=== PATIENT | female | born 1985 | race American Indian/Alaskan Native ===

== ENCOUNTER 2017-11-27 23:08 | Inpatient (IN) | payer MEDICAID, SELFPAY ==
[2017-11-27 23:35] VITALS: BMI 22.6
[2017-11-27] MEDS ORDERED: Lactated Ringer's 1,000 ML IV ONE (23:37)
--- NOTE | 2017-11-27 23:41 | OBADHP ---
Datetime: 11/27/2017 23:34 Admit Comment, IP Provider: 32 yo IUP at 38+w c/o CTX since 4pm...CTX q 2-5m. No SROM. NO VB . +FM PNC: [facility] - chart rev'd GBS neg PMH: denies PSH: denies NKA POBGYNH: No STD; x 2 (7.5lb each) [facility] denies smoking ETOH drugs - she came with FOB f this child (she is safe and no problems) A: IUp at 38w active phase of labor PLAN: admit to L_D IVF pain management, labor, delivery and discussed with pt Her questions answered Extremities - PN: Normal Abdomen - PN: Normal Back - PN: Normal Lungs - PN: Normal Heart - PN: Normal Thyroid - PN: Normal Neurologic - PN: Normal HEENT - PN: Normal General - PN: Normal Presentation-Admit: Vertex FHR - Baseline A Provider: 135 Membranes, Provider: Intact Pool Provider: Negative IP Hx Assessment: The History has been Reviewed and is Current Vital Signs Provider: Reviewed; Within Normal Limits IP Chief Complaint: Uterine contractions NICHD Variability Prov Fetus A: Moderate 6-25bpm NICHD Accel Fetus A IP Provider: [id number] FHR Category Provider Fetus A: Category I NICHD Decel Fetus A IP Provider: None Dilatation, Provider: 5-6 Effacement, Provider: 90 Station, Provider: -1 DTRs - PN: Normal EGA AdmitDate IP: 38.4 IP Adm Impression: Term, intrauterine ; Active labor; Intact Membranes IP Admit Plan: Admit to unit; Initiate labor protocol
[2017-11-27] MEDS ORDERED: Lactated Ringer's 1,000 ML IV SCH (23:45)
[2017-11-28 00:46] LABS: BASO % 0.4 % (0.0-2.0); EOS % 0.3 % (0.0-4.0); HEMOGLOBIN 11.6 g/dL (12.0-16.0); LYMPH # 1.8 K/uL (1.0-4.3); LYMPH % 20.6 % (20.0-40.0); MEAN CELL VOLUME 86.5 fl (81.0-99.0); MEAN CORPUSCULAR HEMOGLOBIN 28.1 pg (27.0-31.0); MEAN CORPUSCULAR HGB CONC 32.5 g/dL (33.0-37.0); MONO # 0.9 K/uL (0.0-0.8); MONO % 9.9 % (0.0-10.0); NEUT % 68.8 % (50.0-75.0); RBC 4.12 Mil/uL (3.80-5.20); RED CELL DISTRIBUTION WIDTH 15.1 % (11.5-14.5); WHITE BLOOD COUNT 8.7 K/uL (4.8-10.8)
[2017-11-28] MEDS ORDERED: Oxytocin 30 UNIT 30 UNITS/500 ML BAG IV ONE ×2 (04:36→05:55)
[2017-11-28] MEDS ORDERED: Bupivacaine HCl 0.5% PF (30 ml) Inj ONE (05:08)
[2017-11-28] MEDS ORDERED: OXYTOCIN/0.9 % NS 20 UNIT/1,000 ML BAG IV ONE (05:55)
[2017-11-28] MEDS ORDERED: Oxycodone/Acetaminophen 5/325 mg Tab PO PRN (05:55)
--- NOTE | 2017-11-28 07:22 | OBDS ---
DELIVERY PERSONNEL Delivery Doctor: Avril Zednejas DO Clam Treader: Stacia Russell RN MATERNAL INFORMATION Delivery Anesthesia: Local Medications in Delivery: PITOCIN 30 UNITS IN NS Estimated Blood Loss (ml): 200 Placenta Cultured: No Maternal Complications: None Provider Comments: Over intact perineum, of live infant. Loose nuchal cord noted. was c rying spontaneously and bulb sustioned. Placenta delivered intact spontaneously. She remained stable EBL 200cc LABOR SUMMARY EDC: 12/07/2017 00:00 No. Babies in Womb: 1 Attempted: No Labor Anesthesia: None LABOR INFORMATION Reason for Induction: Not Applicable Onset of Labor: 11/27/2017 16:00 Complete Dilatation: 11/28/2017 05:00 Oxytocin: N/A Group B Beta Strep: Negative Antibiotics # of Doses: 0 Steroids Given: None Reason Steroids Not Administered: Not Applicable MEMBRANES Membranes Rupture Method: Spontaneous Rupture of Membranes: 11/28/2017 04:30 Length of Rupture (hrs): 0.63 Amniotic Fluid Color: Clear Amniotic Fluid Amount: Large Amniotic Fluid Odor: Normal STAGES OF LABOR Stage 1 hrs: 13 Stage 1 min: 0 Stage 2 hrs: 0 Stage 2 min: 8 Stage 3 hrs: 0 Stage 3 min: 10 Total Time in Labor hrs: 13 Total Time in Labor min: 18 VAGINAL DELIVERY Episiotomy: None Laceration Extension: Second Degree Laceration Type: Perineal Laceration Repair: Yes Laceration Repair Note: Local anesthesia infiltrated. 2.) Vircyl Rapide was used to repair perineal laceratoin Initial Vag Sponge Count: 5 Final Vag Sponge Count: 10 Initial Vag Sharps Count: 1 Final Vag Sharps Count: 1 Sponge Count Correct: Yes; Vaginal Sweep Performed Sharps Count Correct: Yes BABY A INFORMATION Infant Delivery Date/Time: 11/28/2017 05:08 Method of Delivery: Vaginal Born in Route : No : N/A Forceps: N/A Vacuum Extraction: N/A Shoulder Dystocia : No SHOULDER DYSTOCIA BABY A Infant Delivery Date/Time: 11/28/2017 05:08 PRESENTATION/POSITION BABY A Presentation: Cephalic Cephalic Presentation: Vertex Breech Presentation: N/A PLACENTA INFORMATION BABY A Placenta Delivery Time : 11/28/2017 05:18 Placenta Method of Delivery: Spontaneous Placenta Status: Delivered SCORES BABY A Heart Rate 1 min: >100 bpm Resp Effort 1 min: Good Cry Reflex Irritability 1 min: Cough or Sneeze or Pulls Away Muscle Tone 1 min: Active Motion Color 1 min: Body [place], Extremities Blue Resuscitation Effort 1 min: Tactile Stimulation SCORE 1 MIN: 9 Heart Rate 5 min: >100 bpm Resp Effort 5 min: Good Cry Reflex Irritability 5 min: Cough or Sneeze or Pulls Away Muscle Tone 5 min: Active Motion Color 5 min: Body [place], Extremities Blue Resuscitation Effort 5 min: N/A SCORE 5 MIN: 9 INFANT INFORMATION BABY A Gestational Age at Delivery: 38.5 Gestational Status: Term Infant Outcome : Liveborn Condition : Stable Sex: Male IDENTIFICATION/MEDS BABY A ID Band Number: [id number] ID Band Location: Left Leg; Left Arm WEIGHT/LENGTH BABY A Infant Birthweight (gms): 3925 Weight (lb): 8 Infant Weight (oz): 10 CORD INFORMATION BABY A No. Cord Vessels: 3 Nuchal Cord : Around Neck x1, Loose Infant Suction: None
[2017-11-28] MEDS: Benzocaine/Menthol SPRAY TOP PRN (08:15)
[2017-11-29 07:15] LABS: BASO # 0.1 K/uL (0.0-0.2); BASO % 0.9 % (0.0-2.0); EOS # 0.1 K/uL (0.0-0.7); EOS % 0.8 % (0.0-4.0); HEMOGLOBIN 12.6 g/dL (12.0-16.0); LYMPH # 2.7 K/uL (1.0-4.3); LYMPH % 19.6 % (20.0-40.0); MEAN CELL VOLUME 87.6 fl (81.0-99.0); MEAN CORPUSCULAR HEMOGLOBIN 28.3 pg (27.0-31.0); MEAN CORPUSCULAR HGB CONC 32.3 g/dL (33.0-37.0); MEAN PLATELET VOLUME 9.7 fl (7.2-11.7); MONO # 0.9 K/uL (0.0-0.8); MONO % 6.9 % (0.0-10.0); NEUT # 9.7 K/uL (1.8-7.0); NEUT % 71.8 % (50.0-75.0); NRBC % 0.1 % (0.0-0.0); RBC 4.44 Mil/uL (3.80-5.20); RED CELL DISTRIBUTION WIDTH 15.6 % (11.5-14.5); WHITE BLOOD COUNT 13.6 K/uL (4.8-10.8)
[2017-11-29] MEDS: Multivitamin With Minerals Tab PO SCH (08:33)
--- NOTE | 2017-11-29 12:12 | OBPPN ---
Datetime: 11/29/2017 06:53 PP Pain Prov: Within normal limits PP Nausea Prov: Denies PP Flatus Prov: Yes PP BM Prov: No PP Breasts Prov: Not Done PP Heart Prov: Normal PP Lungs Prov: Normal PP Abdomen/Uterus Prov: Normal PP Lochia Prov: Normal PP Vulva/Perineum Prov: Not Done PP CVA Tenderness Prov: Normal PP Extremities Prov: Normal PP C/S Incision Prov: Not Applicable PP Progress Prov: Normal PP Impression Prov: Normal progression PP Plan Prov: Continue present management PP Progress Note Prov: S: Patient seen and evaluated at bedside. No acute events overnight. Abdomina l pain well controlled with ibuprofen PO. Minimal lochia. Tolerating diet well PO. Breast feeding wit hout any difficulty. Denies any fever, chills, CP, SOB, headache, dizziness, N/V/D. O: VSS stable, Afebrile GEN: NAD Cardio: RRR, S1S2, no murmurs Lungs: CTA B/L, no wheezing Abdomen: BS+, appropriated tendenrness, fundus at umbilicus, firm. Ext: No edema, no calf tenderness Neuro/psych: AAOx3 A/P: 29 y/o, , 40.4wks, S/p on PPD1 with normal progression - Continue with ambulation - COntinue - Diet as tolerated - Ibuprofen 600 mg PO Q6 PRN for pain - Continue with current management - Anticipating tomorrow 11/30/17 Martin Kramer, PGY1 OB Hospitalist on-call - on rounds, I saw this patient and agree with PGY1 note MAHNDO H/H Vital Signs Provider PP: Reviewed; Within Normal Limits
[2017-11-29] MEDS ORDERED: Hydrocortisone-Pramoxine 1%-1% Foam(10 gm) TOP SCH (17:00)
[2017-11-29] MEDS: Benzocaine/Menthol SPRAY TOP PRN (20:58)
[2017-11-30] MEDS: Multivitamin With Minerals Tab PO SCH (08:35)
--- NOTE | 2017-11-30 12:44 | OBPPN ---
Datetime: 11/30/2017 05:38 PP Pain Prov: Within normal limits PP Nausea Prov: Denies PP Flatus Prov: Yes PP BM Prov: Yes PP Breasts Prov: Not Done PP Heart Prov: Normal PP Lungs Prov: Normal PP Abdomen/Uterus Prov: Normal PP Lochia Prov: Normal PP Vulva/Perineum Prov: Not Done PP CVA Tenderness Prov: Normal PP Extremities Prov: Normal PP C/S Incision Prov: Not Applicable PP Progress Prov: Normal PP Impression Prov: Normal progression PP Plan Prov: Continue present management PP Progress Note Prov: Patient seen and evaluated at bedside in the morning. Abdominal pain well con trolled with ibuprofen PO. Minimal lochia. Reports passing flatus and had BM yesterday. Tolerating di et well PO. Breast feeding without any difficulty. Denies any fever, chills, CP, SOB, headache, dizzi ness, N/V/D. O: VSS stable, Afebrile GEN: NAD, Well Cardio: RRR, S1S2 Lungs: CTA B/L Abdomen: BS+, No tenderness, fundus at umbilicus, firm. Ext: No edema, no calf tenderness Neuro/psych: AAOx3 A/P: 29 y/o, , 40.4wks, S/p on PPD2 with normal progression - Continue with ambulation - Continue w/ - Regular diet - Ibuprofen 600 mg PO Q6 PRN for pain - Continue with current management - Anticipating discharge today 11/30/17 Martin Kramer, PGY1 Patient was seen with the resident I agree with the note patient cleared for discharge Vital Signs Provider PP: Reviewed; Within Normal Limits
--- NOTE | 2017-11-30 12:46 | OBDCSUM ---
Datetime: 11/29/2017 23:13 Discharge Time: 11/30/2017 12:00 Disch Activity Restrictions: No lifting; No sexual activity; Nothing in vagina - [place], tampon s, douche Discharge Comment, Provider: PAULIE: Alexa.4wk Diagnosis: 32 y/o , s/p on 11/28/17 @ 05:08. She delivered a baby boy, Wt 3925, 9 /9, Circumcision done. Summary: Patient is PPD2 with normal progression. No complications during post- period. [place]och ia less than menses. Reports having BM and passing flatus. She is tolerating regular diet, Fundus fir m below umbilicus, able to ambulate w/o any difficulties, voiding well, denies fever, chills, WILL, SOB , N/V, calf pain. CBC post-: 12.6/38.9 Discharge Instructions: Continue and increase PNV 1 tab PO daily Ibuprofen 600mg 1 tab PO Q6h prn for mild-mod pain Instructions given to patient: If excessive bleeding, return of pain or increasing pain and/or fev er without relief from medication, go to ED PT was urged if feeling sad, mood swing, depression, neglect of baby, suicidal thoughts, homicidal thought should go to ED or call 911 for help Pt should go to her Primary care doctor if she has difficulty with F/U post- visit in 4 to 6 weeks with [facility] Case discussed with attending Martin Kramer, PGY1 Patient was seen with the resident I agree with the notes Contraception after Delivery: Foam/Condoms
[2017-12-01 03:10] VITALS: BP 115/72; PULSE 72; RESP 19; TEMP 98.2
== END 2017-11-30 15:00 | disposition home or self-care (01) | DRG 775 ==
LOC: H.EROB2 23:08 → H.L&D 23:38 → H.OB/GYN 11-28 16:57
PROVIDERS: ADMIT Obstetrics & Gynecology; ATTEND Obstetrics & Gynecology
PROC: 4A1HXCZ Monitoring of Products of Conception, Cardiac Rate, External Approach (ICD-10-PCS; 2017-11-27)
PROC: 10E0XZZ Delivery of Products of Conception, External Approach (ICD-10-PCS; principal; 2017-11-28)
PROC: 0KQM0ZZ Repair Perineum Muscle, Open Approach (ICD-10-PCS; 2017-11-28)
DX: O69.81X0 Labor and delivery complicated by cord around neck, without compression, not applicable or unspecified (principal); O70.1 Second degree perineal laceration during delivery; Z37.0 Single live birth; Z3A.38 38 weeks gestation of pregnancy